=== PATIENT | male | born 1980 | race Caucasian/White ===

== ENCOUNTER → 2021-05-11 | Emergency (ER) | payer OTHER ==
[~2021-05-11] VITALS: Ht 152.4 cm; Wt 93.0 kg
[~2021-05-11] MED LIST: CLONAZEPAM2 MG; LIPITOR40 M1; PAXIL20 MG
== END | disposition home or self-care (01) ==
LOC: EDSEX 18:26 → ER 18:26
DX: T50.904A Poisoning by unspecified drugs, medicaments and biological substances, undetermined, initial encounter (principal); R40.0 Somnolence; Y92.098 Other place in other non-institutional residence as the place of occurrence of the external cause